=== PATIENT | male | born 1985 | race Two or more races ===

== ENCOUNTER 2022-01-29 10:51 | Emergency (ER) | payer OTHER ==
[~2022-01-29] VITALS: Ht 177.8 cm; Wt 65.8 kg
[2022-01-29] MEDS ORDERED: OXYCODONE HCL10 M1 (11:15)
[2022-01-29] MEDS ORDERED: DIAZEPAM5 MG (11:16)
[2022-01-29] MEDS ORDERED: HORIZANT300 MG (11:16)
== END 2022-01-29 14:42 | disposition home or self-care (01) ==
LOC: ER 10:51
DX: R10.84 Generalized abdominal pain (principal); K59.00 Constipation, unspecified; E86.0 Dehydration